=== PATIENT | male | born 1955 | race Caucasian/White ===

== ENCOUNTER 2017-04-18 19:02 | Emergency (ER) | payer OTHER ==
[~2017-04-18] VITALS: Ht 175.3 cm; Wt 81.7 kg
--- NOTE | ~2017-04-18 | EKG ---
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
[2017-04-18 20:10] LABS: ABSOLUTE NEUTROPHILS 5.9 thou/uL (1.4-8.2); BASOPHILS 0.8 % (0.0-2.0); EOSINOPHILS 0.7 % (0.0-3.0); HEMATOCRIT 42.7 % (42.0-52.0); HEMOGLOBIN 14.7 gm/dL (14.0-18.0); LYMPHOCYTES 18.4 % (24.0-44.0); MCH 31.9 pg (26.0-34.0); MCHC 34.4 g/dL (28.0-37.0); MCV 92.7 fL (80.0-100.0); MONOCYTES 4.6 % (1.0-8.0); PLATELET COUNT 115 thou/uL (150-400); POLYS 75.5 % (36.0-66.0); RDW 14.2 % (10.5-14.5); WBC 7.9 thou/uL (4.0-11.0)
[2017-04-18 20:13] LABS: MANUAL DIFF NO
[2017-04-18 20:20] LABS: CALCIUM 8.4 mg/dL (8.5-10.1); CREATININE 0.9 mg/dL (0.7-1.3); POTASSIUM 3.7 mmol/L (3.5-5.1)
[2017-04-18 20:28] LABS: ALBUMIN 3.9 g/dL (3.4-5.0); TOTAL BILIRUBIN 0.5 mg/dL (<0.1-1.0); TOTAL PROTEIN 7.4 g/dL (6.4-8.2)
[2017-04-18 22:30] VITALS: BP 120/88
== END 2017-04-19 07:03 | disposition home or self-care (01) ==
LOC: ER 19:02
PROVIDERS: Nurse Practitioner Family
DX: F10.120 Alcohol abuse with intoxication, uncomplicated (principal)